=== PATIENT | female | born 1985 | race American Indian/Alaskan Native ===

== ENCOUNTER 2016-06-21 18:59 | Emergency (ER) | payer BC, OTHER ==
[~2016-06-21] VITALS: Ht 157.5 cm; Wt 89.0 kg
[~2016-06-21 18:59] MED LIST: IBUP400T22 PO
[2016-06-21 19:13] VITALS: Ht 157.5 cm; Wt 89.0 kg
[2016-06-21] MEDS ORDERED: HYDROCODONE/APAP (5/325) TAB PO STA (21:39)
--- NOTE | 2016-06-21 21:49 | ERD ---
ER Documentation Chief Complaint Date/Time DATE: 06/21/16 TIME: 21:44 Chief Complaint diffuse abds pain x 1 day HPI This pleasant 30-year-old female presents to emergency department today with recurrent abdominal and back pain. Patient reports that symptoms started yesterday, pain described as sharp, cramping, radiating to low back. 10/10 on pain scale. Patient reports last menstrual period was 2 weeks ago and reported normal. Patient reports history of possible ovarian cyst and collapsed bladder. States that she was seen at another hospital treated with [place] kept out of work for a few days. Patient states she went back to work on , pain returned yesterday. Denies dysuria, hematuria, or vaginal discharge. Patient in room with significant other. Reports that she is not taking anything for pain because of working. Patient is employed at this hospital. ROS All systems reviewed and are negative except as per history of present illness. Medications Home Meds Active Scripts Ibuprofen* (Ibuprofen*) 400 Mg Tablet, 400 MG PO Q6H Y for PAIN, #30 TAB Prov:JOEL GORMAN PA-C 02/17/16 Allergies Allergies: Coded Allergies: No Known Allergy (Unverified , 02/17/16) PMhx/Soc History of Surgery: Yes (gallbladder, csections) Anesthesia Reaction: No Hx Neurological Disorder: No Hx Respiratory Disorders: No Hx Cardiac Disorders: No Hx Psychiatric Problems: No Hx Miscellaneous Medical Probl: No Hx Alcohol Use: No Hx Substance Use: No Hx Tobacco Use: No Smoking Status: Never smoker Physical Exam Vitals Vital Signs Date Time Temp Pulse Resp B/P Pulse Ox O2 Delivery O2 Flow Rate FiO2 06/21/16 19:13 98.1 80 20 122/67 99 Physical Exam Const: Obvious discomfort from pelvic pain, no acute distress Head: Atraumatic Eyes: Normal Conjunctiva, PERRLA, EOMI ENT: Normal External Ears, Nose and Mouth. Mucous membranes moist Neck: Resp: Cardio: Regular rate and rhythm, no murmurs Abd: Soft, hyper tender pelvis and bladder. Lumbar tenderness Skin: Back: Lumbar tenderness Ext: Neur: Awake and alert Psych: Normal Mood and Affect Result Diagram: 06/21/16 8075 Results 24 hrs Laboratory Tests Test 06/21/16 21:51 White Blood Count 8.910^3/ul Red Blood Count 4.4410^6/ul Hemoglobin 12.3g/dl Hematocrit 38.7% Mean Corpuscular Volume 87.2fl Mean Corpuscular Hemoglobin 27.7pg Mean Corpuscular Hemoglobin Concent 31.8g/dl Red Cell Distribution Width 14.0% Platelet Count 92358^3/UL Mean Platelet Volume 10.9fl Neutrophils % 63.7% Lymphocytes % 27.0% Monocytes % 6.8% Eosinophils % 1.6% Basophils % 0.3% Nucleated Red Blood Cells % 0.0/100WBC Neutrophils # 5.710^3/ul Lymphocytes # 2.410^3/ul Monocytes # 0.610^3/ul Eosinophils # 0.110^3/ul Basophils # 0.010^3/ul Nucleated Red Blood Cells # 0.010^3/ul Urine Color LT. YELLOW Urine Clarity SLIGHTLY CLOUDY Urine pH 6.0 Bedside Urine pH (LAB) 6.0 Urine Specific [place] 1.025 Bedside Urine Protein (LAB) Negative Bedside Urine Glucose (UA) Negative Urine Ketones TRACE Bedside Urine Ketones (LAB) Negative Bedside Urine Blood 2+ Urine Nitrite POSITIVE Bedside Urine Nitrite (LAB) Positive Urine Bilirubin NEGATIVE Urine Urobilinogen 0.2 E.U./dL Urine Leukocyte Esterase 1+ Bedside Urine Leukocyte Esterase (L Trace Urine Microscopic RBC 2-5/HPF Urine Microscopic WBC 25-50/HPF Urine Squamous Epithelial Cells MODERATE Urine Bacteria MANY Urine Hemoglobin 1+ Urine Glucose NEGATIVE% Urine Total Protein NEGATIVE Beta HCG, Quantitative < 2.4mIU/ml Current Medications Medications (Trade) Dose Ordered Sig/Amada Route PRN Reason Start Time Stop Time Status Last Admin Dose Admin Acetaminophen/ Hydrocodone Bitart ([place] (5/325)) 1 tab ONCE STAT PO 06/21/16 21:39 06/21/16 21:44 DC 06/21/16 21:52 Ondansetron HCl (Zofran Inj) 4 mg ONCE STAT IV 06/21/16 22:31 06/21/16 22:32 DC 06/21/16 22:35 Ketorolac Tromethamine (Toradol) 15 mg ONCE STAT IM 06/21/16 22:38 06/21/16 22:39 DC 06/21/16 22:41 Interpretation text CBC shows no evidence of hemorrhage or infection Chemistry shows no evidence of significant electrolyte abnormalities or renal insufficiency Liver function tests shows no evidence of acute biliary or hepatic dysfunction Urinalysis positive for nitrates, leukocytes, microscopic hematuria findings are suggestive of a urinary tract infection Procedures/MDM PROCEDURE: US Pelvis. CLINICAL INDICATION: Pelvic pain. Last menstrual period 06/07/2016 TECHNIQUE: Multiple sonographic images of the pelvis were obtained utilizing a transabdominal technique. The images were reviewed on a PACS workstation. COMPARISON: None. FINDINGS: The uterus measures 11.3 x 4.3 x 6.2 cm. The thickness of the endometrium equals 2.4 mm. The right ovary measures 4.6 x 3 x 2.8 cm and contains 2.1 cm follicle. The left ovary measures 2.9 x 1.8 x 2.6 cm and is unremarkable. Color flow and spectral analysis demonstrates normal arterial flow in both ovaries. No adnexal mass or free intrapelvic fluid is seen. IMPRESSION: Enlarged uterus. Otherwise unremarkable examination. Please see above. This 30-year-old female presents to emergency department with pelvic pain, since yesterday. Back pain. With possible history of ovarian cyst. Patient reports the pain is 10 out of 10 on pain scale. Differential includes but not limited to ovarian cysts, , ectopic , urinary tract infection. Patient treated for pain with [place], laboratory findings CBC unremarkable for evidence of infection or hemorrhage. CBC unremarkable for electrolyte imbalance, or renal insufficiency. Urinalysis positive for urinary tract infection. Pelvic ultrasound findings enlarged uterus, thickness of endometrium equals 2.4, right ovary contains a 2.1 cm follicle, left ovary unremarkable. Color flow and spectral analysis demonstrate normal arterial flow to both arteries, no adnexal mass or free intrapelvic fluid seen. Case discussed with . Patient will be treated with Macrobid, ibuprofen, instructed to have follow-up urinalysis after treatment with primary care physician. Patient is appropriate for outpatient management by primary care physician or [facility]. Return to emergency room for increased pain, nausea, fever, nausea or vomiting. I feel the patient is stable for discharge at this time. I have discussed results, examination findings, the treatment plan with the patient and family present prior to discharge. Indications for emergent reevaluation, side effects of medication were also discussed. All questions were answered. Patient verbalizes understanding and agrees with plan of care. Departure Diagnosis: Primary Impression: UTI (urinary tract infection) Urinary tract infection type: site unspecified Hematuria presence: with hematuria Qualified Code: N39.0 - Urinary tract infection with hematuria, site unspecified Condition: Stable Patient Instructions: Understanding Urinary Tract Infections (UTIs) Additional Instructions: Thank you for for coming to [facility] for your care today. Please ask your nurse or provider if you have questions about your care today and do not leave until all your questions have been answered. Please use any medications given as directed and follow-up with your doctor (or the doctor you were referred to) in the next 2-3 days. If you do not have a primary care doctor you may follow up at the [facility] (listed below). You may also use motrin and tylenol as needed for fever and/or pain unless instructed otherwise by your provider or nurse. Indications for more urgent follow-up have been discussed, but you may return to the Emergency Department at ANY time for any worrisome or worsening symptoms. If you have abdominal pain, please know that no test or exam you received is perfect and you should follow up within 8 hours for continued pain. If you had any imaging studies today, such as an X-Ray or CT Scan, these studies will be reviewed later by a radiologist. You will be called if there are important findings that were not identified today, so make sure the contact information you provided at registration is correct. If you received any narcotic pain control medicine today, such as Vicodin, Morphine or Dilaudid, your coordination and judgment may be affected for a number of hours. Please do not drive or operate heavy machinery, and you may want someone to assist you at home. If you were given a prescription for narcotic medication, be aware that it is very addictive- use sparingly and only if necessary. TAMARA EDWARDS Jun 21, 2016 21:49
[2016-06-21 21:50] LABS: URINE BLOOD (Dip) POC 2+ (NEGATIVE)
[2016-06-21 22:17] LABS: ADD SCAN DIFF NO
[2016-06-21 22:20] LABS: BASOPHILS % 0.3 % (0.0-2.0); EOSINOPHILS # 0.1 10^3/ul (0.0-0.5); EOSINOPHILS % 1.6 % (0.0-7.0); HEMATOCRIT 38.7 % (37.0-47.0); HEMOGLOBIN 12.3 g/dl (12.0-16.0); LYMPHOCYTES # 2.4 10^3/ul (0.8-2.9); MEAN CORPUSCULAR HEMOGLOBIN 27.7 pg (29.0-33.0); MEAN CORPUSCULAR HGB CONC 31.8 g/dl (32.0-37.0); MEAN CORPUSCULAR VOLUME 87.2 fl (82.0-101.0); MEAN PLATELET VOLUME 10.9 fl (7.4-10.4); MONOCYTE # 0.6 10^3/ul (0.3-0.9); MONOCYTES % 6.8 % (0.0-11.0); NEUTROPHIL # 5.7 10^3/ul (1.6-7.5); NEUTROPHILS % 63.7 % (39.0-77.0); PLATELET COUNT 310 10^3/UL (140-415); RED BLOOD COUNT 4.44 10^6/ul (4.20-5.40); WHITE BLOOD COUNT 8.9 10^3/ul (4.8-10.8)
[2016-06-21 22:25] LABS: ADD UMIC YES; URINE BILIRUBIN (Dip) NEGATIVE (NEGATIVE); URINE BLOOD (Dip) 1+ (NEGATIVE); URINE COLOR LT. YELLOW (YELLOW); URINE GLUCOSE (Dip) NEGATIVE (NEGATIVE); URINE KETONES (Dip) TRACE (NEGATIVE); URINE LEUKOCYTE ESTERASE (Dip) 1+ (NEGATIVE); URINE NITRITE (Dip) POSITIVE (NEGATIVE); URINE TOTAL PROTEIN (Dip) NEGATIVE (NEGATIVE); URINE UROBILINOGEN (Dip) 0.2 E.U./dL (0.1-1.0)
[2016-06-21] MEDS ORDERED: ONDANSETRON 4 MG INJ IV STA (22:31)
[2016-06-21 22:38] LABS: BACTERIA,URINE MANY; SQUAMOUS EPITHELIAL CELL,UR MODERATE
[2016-06-21] MEDS ORDERED: KETOROLAC 15 MG INJ IM STA (22:38)
--- NOTE | 2016-06-21 23:12 | RADRPT ---
PROCEDURE: US Pelvis. CLINICAL INDICATION: Pelvic pain. Last menstrual period 06/07/2016 TECHNIQUE: Multiple sonographic images of the pelvis were obtained utilizing a transabdominal tech nique. The images were reviewed on a PACS workstation. COMPARISON: None. FINDINGS: The uterus measures 11.3 x 4.3 x 6.2 cm. The thickness of the endometrium equals 2.4 mm. The right ovary measures 4.6 x 3 x 2.8 cm and contains 2.1 cm follicle. The left ovary measures 2.9 x 1.8 x 2. 6 cm and is unremarkable. Color flow and spectral analysis demonstrates normal arterial flow in bot h ovaries. No adnexal mass or free intrapelvic fluid is seen. IMPRESSION: Enlarged uterus. Otherwise unremarkable examination. Please see above. RPTAT: HJES .Emeterio Aguirre MD, MD Date Time Electronically viewed and signed by .Emeterio Aguirre MD, on 06/21/2016 23:11 .S/
[2016-06-21] MEDS ORDERED: NITR-58 PO (23:33)
[2016-06-21] MEDS ORDERED: PHEN-538 PO (23:34)
[2016-06-21 23:44] VITALS: BP 97/55; PULSE 79; RESP 17; TEMP 98.3
== END 2016-06-21 23:45 | disposition home or self-care (01) ==
LOC: EEVIPCON 18:59 → FTE 18:59
DX: N39.0 Urinary tract infection, site not specified (principal); R10.2 Pelvic and perineal pain
CPT/HCPCS: 76856; 81001; 84702; 85025; J1885; J2405; 36415; 81003; 96372; 96374